=== PATIENT | female | born 1970 | race Two or more races ===

== ENCOUNTER 2018-02-16 13:56 | Emergency (ER) | payer MEDICAID ==
[~2018-02-16] VITALS: Ht 152.4 cm; Wt 63.5 kg
[2018-02-16 14:12] VITALS: BP 124/72
== END 2018-02-16 16:14 | disposition home or self-care (01) ==
LOC: ER 14:07
DX: T78.40XA Allergy, unspecified, initial encounter (principal); X58.XXXA Exposure to other specified factors, initial encounter